=== PATIENT | female | born 1980 | race Caucasian/White ===

== ENCOUNTER 2024-06-22 06:31 | Day surgery (SDC) | payer OTHER, SELFPAY ==
[2024-06-11 11:17] VITALS: BMI 29.5
[2024-06-11 11:38] LABS: Hematocrit 42.8 % (37.0-47.0); Hemoglobin 14.1 g/dL (12.0-16.0); Mean Corp Hgb Conc. 32.9 g/dL (33.0-37.0); Mean Corpuscular Hgb 30.1 pg (27.0-31.0); Mean Corpuscular Volume 91.5 fL (81.0-99.0); Platelet Count 292 10^3/uL (130-400); Red Blood Cell Count 4.68 10^6/uL (4.20-5.40); Red Cell Dist. Width 12.8 % (11.5-14.5); White Blood Cell Count 8.5 10^3/uL (4.8-10.8)
[2024-06-11 12:38] LABS: Blood Urea Nitrogen 10 mg/dl (7-17); Calcium 9.6 mg/dl (8.4-10.2); Carbon Dioxide 30 mmol/L (22-30); Chloride 100 mmol/L (98-107); Estimated Creatinine Clearance 95 ml/min; Glucose 90 mg/dl (70-99); Potassium 4.4 mmol/L (3.5-5.1); Sodium 139 mmol/L (135-145); eGFR > 60.00
[2024-06-22 11:44] VITALS: BMI 29.5
[2024-06-22 11:48] VITALS: BP 127/89
[2024-06-22] MEDS: Pyridium 200 MG PO (11:57)
[2024-06-22 16:00] VITALS: BP 127/89; BP 128/87
[2024-06-22 16:15] VITALS: BP 129/83
[2024-06-22 16:49] VITALS: BP 120/90
--- NOTE | 2024-06-22 17:12 | SUR.PHASEI ---
at 1640 - 300 cc ns instill into wing - using sterile technique, patient tolerated well. balloon deflated and wing discontinued. patient discharged to [facility] , no pain - slight abdominal soreness.
[2024-06-22 17:20] VITALS: BP 124/85
[2024-06-22 17:46] VITALS: BP 131/69
== END 2024-06-22 18:19 | disposition home or self-care (01) ==
LOC: SDS 06:31
PROVIDERS: ATTENDING PHYSICIAN Obstetrics & Gynecology; FAMILY PHYSICIAN Family Medicine
DX: Z30.2 Encounter for sterilization (principal); N39.3 Stress incontinence (female) (male); N70.91 Salpingitis, unspecified
CPT/HCPCS: 58661; 57288; 88302; 36415; 80048; 85027; 93005; C1776

== ENCOUNTER → 2024-09-18 12:14 | Outpatient (REF) | payer OTHER, SELFPAY | LOC: HWRAD 12:14 | PROVIDERS: ATTENDING PHYSICIAN Obstetrics & Gynecology; FAMILY PHYSICIAN Physician Assistant Medical | DX: N20.0 Calculus of kidney (principal) | CPT/HCPCS: 76770 ==

== ENCOUNTER → 2025-03-10 15:25 | Outpatient (REF) | payer OTHER, SELFPAY | LOC: HWRAD 15:25 | PROVIDERS: ATTENDING PHYSICIAN Physician Assistant Medical | DX: R05.8 Other specified cough (principal); R04.2 Hemoptysis | CPT/HCPCS: 71046 ==

== ENCOUNTER 2025-05-17 11:03 | Emergency (ER) | payer OTHER, SELFPAY ==
--- NOTE | 2025-05-17 11:55 | ED.GENMED ---
History of Present Illness
General
Chief Complaint: Generalized Pain
Source: patient
Exam Limitations: none
Time Seen by Provider: 05/17/25 11:34
Nursing documentation reviewed up to this point in time: agreed with
History of Present Illness
History of Present Illness:
45-year-old female presenting to the emergency department with concerns of generalized fluctuating muscle contractions mainly to the left side including her face left arm left back left neck left chest and left leg. She has seen multiple doctors
and pain management doctors for this. Currently she is on fluoxetine gabapentin and tizanidine for symptoms.
Past History
Past History
ED Past Medical History: Psychiatric (Depression) and Other (recurring Lymes)
ED Past Surgical History: and Other (Breast implants, wisdom teeth)
Social History
Tobacco: Non-smoker
Alcohol: None
Drug: None
Personal:
Living: with family
Employment: Employed
Review of Systems
Review of Systems
Allergies reviewed?: Yes
All Other Systems: ROS reviewed and negative except as documented in HPI and ROS
Phy Exam
Physical Exam
Physical Exam:
GENERAL: Alert , in no apparent distress
EYE: pupils equal and reactive
NECK: Supple, no significant adenopathy.
ENT: o/p clr, mmm.
CARDIAC: Regular rate and rhythm .
LUNGS: Clear breath sounds bilaterally, no acute respiratory distress, no wheezes/rales/rhonchi
ABDOMEN: Soft, without focal tenderness, no r/g, no cvat
NEUROLOGICAL: Alert and oriented, no focal neuro deficits 5 out of 5 upper and lower extremity strength normal sensation with palpating bilaterally. Walking with steady gait.
SKIN: Warm and dry, skin intact.
MUSCULOSKELETAL: No edema, well perfused. No visible abnormalities
PSYCH: Normal and appropriate interaction.
Course
Orders/Labs/Results
Orders:
Orders
05/17/25 11:55
Test Result ONCE
05/17/25 11:57
Beta Hcg Serum Qualitative Screen [HCG, Serum Qualitative Screen] Urgent
CBC/With Diff [Complete Blood Count/With Diff] Urgent
CMP [Comprehensive Metabolic Panel] Urgent
Lyme Progressive Urgent
TSH Reflex To Free T4 Urgent
05/17/25 13:41
Dexamethasone [Decadron] 10 mg PO NOW STA
Abnormal Lab Results
05/17/25
11:57
RBC 4.10 L 10^6/uL
(4.20-5.40)
Hct 36.3 L %
(37.0-47.0)
05/17/25 11:57
05/17/25 11:57
Vital Signs
Initial and Last Documented VS:
Initial Vital Signs
Temp Pulse Resp Pulse Ox
97.8 F 85 18 98
05/17/25 11:07 05/17/25 11:07 05/17/25 11:07 05/17/25 11:07
Last Documented Vital Signs
Temp Pulse Resp Pulse Ox
97.8 F 85 18 98
05/17/25 11:07 05/17/25 11:07 05/17/25 11:07 05/17/25 11:56
MDM/Problems Addressed
MDM/Problems Addressed:
45-year-old female presenting to the emergency department today with concerns of fluctuating muscle contractions and discomfort. Does follow-up with a pain management doctor. Here labs without acute abnormalities. Patient no distress no signs of
emergent pathology advised for close outpatient follow-up. Return precautions given.
*Pulse Oximetry
SaO2: 98
Oxygen Mode of Delivery: Room air
Patient hypoxic: no (98)
*Critical Care Note
Total Time (30-74mins, 75-104mins- exclusive of procedures): Not Applicable
ED Attending Note
-
Portions of this chart may have been created with voice recognition software.� Occasional wrong word or��sound alike� substitutions may have occurred due to the inherent limitations of voice recognition software.
Discharge Plan
Departure
Patient Disposition: Home (Routine Discharge)
Date of Disposition: 05/17/25
Time of Disposition: 13:42
Patient with high blood pressure during this ER visit?: No
Condition: Good
Covid-19: Not Applicable
Discharge Problem:
Muscle spasm
Instructions: Chronic Pain (DC)
Prescriptions:
New
diazepam [Valium] 5 mg tablet
5 mg PO BID PRN (Reason: muscle spasm) Qty: 7 0RF
prednisone 20 mg tablet
40 mg PO DAILY 4 Days Qty: 8 0RF
No Action
fluoxetine 40 mg capsule
40 mg PO DAILY
cyclobenzaprine 5 mg Tablet
5 mg PO Q8HPRN PRN (Reason: Back Pain)
Bi-Est
1 applic topical DAILY
Medical Marijuana
1 dose inhalation PRN PRN (Reason: pain)
Referrals:
Atiya Saucedo MD [Family Provider, Family Practice]
Activity Restrictions/Additional Instructions:
You came to the emergency department today with concerns of intermittent muscle contractions. This could be related to your neck pathology and back pathology. Please take the prescribed medications and follow-up closely with your outpatient team.
Return for any worsening, new or concerning symptoms.
Interventions
Interventions:
*Risk Screen - Suicide Last Done: 05/17/25 11:07
*General Assessment Last Done: 05/17/25 11:07
*Neglect/Abuse Screening Last Done: 05/17/25 12:17
*ED- Fall Risk Assessment Last Done: 05/17/25 12:17
*ED COVID-19 Vaccine History Last Done: 05/17/25 12:17
*ED Influenza Vaccine History Last Done: 05/17/25 12:17
Discharge Date and Time
Print Language: ALBANIAN
[2025-05-17 12:09] LABS: Hematocrit 36.3 % (37.0-47.0); Hemoglobin 12.0 g/dL (12.0-16.0); Mean Corp Hgb Conc. 33.1 g/dL (33.0-37.0); Mean Corpuscular Volume 88.5 fL (81.0-99.0); Nucleated Red Blood Cells % 0 %; Platelet Count 308 10^3/uL (130-400); Red Cell Dist. Width 12.7 % (11.5-14.5)
[2025-05-17 12:31] LABS: HCG, Serum Qualitative Screen Negative
[2025-05-17 12:35] LABS: ALT (SGPT) 21 U/L (0-35); AST (SGOT) 26 U/L (14-36); Albumin 4.8 g/dl (3.5-5.0); Alkaline Phosphatase 53 U/L (38-126); Blood Urea Nitrogen 12 mg/dl (7-17); Calcium 9.7 mg/dl (8.4-10.2); Carbon Dioxide 27 mmol/L (22-30); Chloride 104 mmol/L (98-107); Glucose 87 mg/dl (70-99); Potassium 4.3 mmol/L (3.5-5.1); Sodium 135 mmol/L (135-145); Total Protein 7.4 g/dl (6.3-8.2); eGFR > 60.00
[2025-05-17 13:47] VITALS: BP 112/71
[2025-05-17] MEDS: DECADRON 10 MG PO (13:55)
== END 2025-05-17 14:03 | disposition home or self-care (01) ==
LOC: EMR 11:03
PROVIDERS: Physician Assistant; EMERGENCY PHYSICIAN Emergency Medicine; FAMILY PHYSICIAN Student in an Organized Health Care Education/Training Program
DX: M62.838 Other muscle spasm (principal); Z98.82 Breast implant status
CPT/HCPCS: 99283; 80053; 84443; 84703; 85025; 86618

== ENCOUNTER 2025-06-14 10:45 | Emergency (ER) | payer OTHER, SELFPAY ==
[2025-06-14 10:48] VITALS: BP 144/91
[2025-06-14 10:50] VITALS: BP 144/91
[2025-06-14 10:55] VITALS: BMI 28.1
[2025-06-14 11:00] VITALS: BP 148/99
--- NOTE | 2025-06-14 11:20 | ED.GENMED ---
History of Present Illness
<Pia Najera MD, Resident - Last Filed: 06/14/25 15:49>
General
Chief Complaint: Numbness
Source: patient
Exam Limitations: none
Time Seen by Provider: 06/14/25 11:12
History of Present Illness
History of Present Illness:
Patient is a 45-year-old female, with past medical history significant for anxiety/depression, recurring Lyme disease, breast implants removal with delayed healing on the left side.. Since then she had recurrent emergency department visits with
concerns for numbness of left side of body including left face, neck, chest, hip and legs. She started seeing the pain management, who did a cervical and thoracic MRI that resulted to show bulging of the cervical vertebra and she was referred to
the neurologist. She has been taking baclofen, gabapentin and meloxicam for pain which has been helping and she has an upcoming neurologist appointment on , June 17, 2025.
Today she was sitting in her house, when she had a sudden feeling of cold developing on the left side followed by muscular contractions and difficulty in breathing as well as chewing. She felt very stiff and got scared and that is why she came to
the ER.
She reported severe pain in upper back, that has been affecting her breathing
Denies any fever, chills, diarrhea, constipation, muscle weakness or any vision changes.
Past History
<Pia Najera MD, Resident - Last Filed: 06/14/25 15:49>
Past History
ED Past Medical History: Psychiatric (Depression) and Other (recurring Lymes)
ED Past Surgical History: and Other (Breast implants, wisdom teeth)
Social History
Tobacco: Non-smoker
Alcohol: None
Drug: None
Personal:
Living: with family
Employment: Employed
Review of Systems
<Pia Najera MD, Resident - Last Filed: 06/14/25 15:49>
Review of Systems
All Other Systems: ROS reviewed and negative except as documented in HPI and ROS
Phy Exam
<Pia Najera MD, Resident - Last Filed: 06/14/25 15:49>
General Physical Exam
General Presentation: no apparent distress
Eye Exam
Eye Exam: PERRL, conjunctiva normal and visual saxena normal
Cardiovascular Exam
Cardiovascular Exam: regular rate/rhythm and no murmur
Pulmonary Exam
Pulmonary Exam: lungs clear, no respiratory distress, no crackles and no wheezing
Gastrointestinal Exam
Gastrointestinal Exam: normal bowel sounds, non tender, soft and non distended
Neurological Exam
Neurological Exam: alert, oriented x3, CN II-XII intact, no motor deficits, no sensory deficits, speech normal and cerebellum intact
Musculoskeletal Exam
Musculoskeletal Exam: full ROM and neck pain
Skin Exam
Skin Exam: normal color, warm/dry and no rash
Psychiatric Exam
Psychiatric Exam: anxious
Course
<Pia Najera MD, Resident - Last Filed: 06/14/25 15:49>
Orders/Labs/Results
Orders:
Orders
06/14/25 11:08
EKG [Electrocardiogram (*1)] Urgent
Reason for Study: Chest Pain
EKG- Treatment ONCE
06/14/25 11:15
Beta HCG Quantitative Urgent
Comment: ADD ON
CMP [Comprehensive Metabolic Panel] Urgent
Complete Blood Count/With Diff Urgent
Troponin I Urgent
06/14/25 11:18
D-Dimer Stat
06/14/25 12:20
Chest [CR Chest - 2 Views ] Stat
Comment:
Reason For Exam: rib pain
06/14/25 13:52
CT Chest PE Study Stat
Comment:
Reason For Exam: Suspected PE
06/14/25 14:08
Test Result ONCE
06/14/25 14:27
Add On- LAB Urgent
Tests Added?: serum hcg quant
06/14/25 15:24
Add On- LAB Stat
Tests Added?: qualitative HCG
06/14/25 16:21
Baclofen [Lioresal] 10 mg PO NOW STA
Gabapentin [Neurontin] 300 mg PO NOW STA
06/14/25 16:22
CT Abd/pelvis Angio W/wo Iv Urgent
Comment:
Reason For Exam: active maroon stools
IV Insert/Care/Rem.- Treatment PRN
Abnormal Lab Results
06/14/25 06/14/25
11:15 11:18
RBC 4.08 L 10^6/uL
(4.20-5.40)
Hgb 11.8 L g/dL
(12.0-16.0)
Hct 36.0 L %
(37.0-47.0)
MCHC 32.8 L g/dL
(33.0-37.0)
Absolute Neuts (auto) 7.0 H 10^3/uL
(1.4-6.5)
D-Dimer 0.81 H ug/mlFEU
(0.00-0.50)
BUN 4 L mg/dl
(7-17)
ALT 62 H U/L
(0-35)
06/14/25 11:15
06/14/25 11:15
Vital Signs
Initial and Last Documented VS:
Initial Vital Signs
Temp Pulse Resp BP Pulse Ox
98.3 F 70 18 144/91 100
06/14/25 10:48 06/14/25 10:48 06/14/25 10:48 06/14/25 10:48 06/14/25 10:48
Last Documented Vital Signs
Temp Pulse Resp BP Pulse Ox
97.7 F 75 23 148/99 100
06/14/25 14:00 06/14/25 14:15 06/14/25 14:15 06/14/25 11:00 06/14/25 12:00
<Tania Marin MD - Last Filed: 06/14/25 18:58>
Orders/Labs/Results
Orders:
Orders
06/14/25 11:08
EKG [Electrocardiogram (*1)] Urgent
Reason for Study: Chest Pain
EKG- Treatment ONCE
06/14/25 11:15
Beta HCG Quantitative Urgent
Comment: ADD ON
CMP [Comprehensive Metabolic Panel] Urgent
Complete Blood Count/With Diff Urgent
Troponin I Urgent
06/14/25 11:18
D-Dimer Stat
06/14/25 12:20
Chest [CR Chest - 2 Views ] Stat
Comment:
Reason For Exam: rib pain
06/14/25 13:52
CT Chest PE Study Stat
Comment:
Reason For Exam: Suspected PE
06/14/25 14:08
Test Result ONCE
06/14/25 14:27
Add On- LAB Urgent
Tests Added?: serum hcg quant
06/14/25 15:24
Add On- LAB Stat
Tests Added?: qualitative HCG
06/14/25 16:21
Baclofen [Lioresal] 10 mg PO NOW STA
Gabapentin [Neurontin] 300 mg PO NOW STA
06/14/25 16:22
CT Abd/pelvis Angio W/wo Iv Urgent
Comment:
Reason For Exam: active maroon stools
IV Insert/Care/Rem.- Treatment PRN
Abnormal Lab Results
06/14/25 06/14/25
11:15 11:18
RBC 4.08 L 10^6/uL
(4.20-5.40)
Hgb 11.8 L g/dL
(12.0-16.0)
Hct 36.0 L %
(37.0-47.0)
MCHC 32.8 L g/dL
(33.0-37.0)
Absolute Neuts (auto) 7.0 H 10^3/uL
(1.4-6.5)
D-Dimer 0.81 H ug/mlFEU
(0.00-0.50)
BUN 4 L mg/dl
(7-17)
ALT 62 H U/L
(0-35)
06/14/25 11:15
06/14/25 11:15
Vital Signs
Initial and Last Documented VS:
Initial Vital Signs
Temp Pulse Resp BP Pulse Ox
98.3 F 70 18 144/91 100
06/14/25 10:48 06/14/25 10:48 06/14/25 10:48 06/14/25 10:48 06/14/25 10:48
Last Documented Vital Signs
Temp Pulse Resp BP Pulse Ox
97.7 F 75 23 148/99 100
06/14/25 14:00 06/14/25 14:15 06/14/25 14:15 06/14/25 11:00 06/14/25 12:00
<Pia Najera MD, Resident - Last Filed: 06/14/25 15:49>
MDM/Problems Addressed
Differential Diagnosis Includes:
Multiple sclerosis
Nerve compression
Pleurisy sec to PE
Electrolyte derangements
MDM/Problems Addressed:
Given her, nature of symptoms, multiple sclerosis sounds like a possible diagnosis, MRI recommended but patient has an upcoming appointment with neurology on in 2 days. Patient is stable and it would be more appropriate if neurology orders
and evaluates the MRI
She also complains of rib pain that has been making her feel worse, has pain with breathing, check D-dimers if negative reassured the patient and if positive will recommend a CT chest
Blood work reassuring
<Pia Najera MD, Resident - Last Filed: 06/14/25 15:49>
*Pulse Oximetry
SaO2: 100
Oxygen Mode of Delivery: Room air
Patient hypoxic: no
*Critical Care Note
Total Time (30-74mins, 75-104mins- exclusive of procedures): Not Applicable
<Tania Marin MD - Last Filed: 06/14/25 18:58>
*Radiology
Radiology exam reviewed: radiology read reviewed
Data Reviewed
Source: patient
<Tania Marin MD - Last Filed: 06/14/25 18:58>
Patient Management
Escalation/DeEscalation of care consider admission/obs:
6:50 PM patient appears well and comfortable.
Patient CT does show gallstones, however, patient denies any right upper quadrant pain and has no right upper quadrant tenderness on exam.
Additionally, CT also shows inflammation of bladder, however, patient adamantly denies burning when she urinates or suprapubic pressure. Therefore, clinically there is no sign of UTI.
I discussed these findings with the patient so she is aware that there is nonspecific inflammation of the bladder as well as signs of gallstones. Patient sent home with a copy of her CT chest as well as abdomen pelvis to review with her primary
care doctor
Patient tells me that she is worried she might be having seizures, however, patient has had no seizure activity in the ED.
Patient encouraged to follow-up with neurology as scheduled this .
ED Attending Note
<Pia Najera MD, Resident - Last Filed: 06/14/25 15:49>
-
Portions of this chart may have been created with voice recognition software.� Occasional wrong word or��sound alike� substitutions may have occurred due to the inherent limitations of voice recognition software.
Discharge Plan
Departure
Patient Disposition: Home (Routine Discharge)
Date of Disposition: 06/14/25
Time of Disposition: 18:49
Patient with high blood pressure during this ER visit?: No
Discharge Problem:
numbness of left side
Instructions: Peripheral Neuropathy (DC)
Prescriptions:
No Action
fluoxetine 40 mg capsule
40 mg PO DAILY
cyclobenzaprine 5 mg Tablet
5 mg PO Q8HPRN PRN (Reason: Back Pain)
Bi-Est
1 applic topical DAILY
Medical Marijuana
1 dose inhalation PRN PRN (Reason: pain)
diazepam [Valium] 5 mg tablet
5 mg PO BID PRN (Reason: muscle spasm) Qty: 7 0RF
prednisone 20 mg tablet
40 mg PO DAILY 4 Days Qty: 8 0RF
Referrals:
UNKNOWN - PT NOT,INTERVIEWE [Family Provider]
Activity Restrictions/Additional Instructions:
Follow-up with neurology-as scheduled
Follow-up with your primary care doctor within 1 week to review the CAT scan results with your doctor
Interventions
Interventions:
*Risk Screen - Suicide Last Done: 06/14/25 10:48
*General Assessment Last Done: 06/14/25 10:55
*Neglect/Abuse Screening Last Done: 06/14/25 10:48
*ED- Fall Risk Assessment Last Done: 06/14/25 10:55
*ED COVID-19 Vaccine History Last Done: 06/14/25 10:48
*ED Influenza Vaccine History Last Done: 06/14/25 10:48
ED- Neurological Assessment Last Done: 06/14/25 10:55
Discharge Date and Time
Print Language: FRENCH
[2025-06-14 11:32] LABS: Hematocrit 36.0 % (37.0-47.0); Hemoglobin 11.8 g/dL (12.0-16.0); Mean Corp Hgb Conc. 32.8 g/dL (33.0-37.0); Mean Corpuscular Volume 88.2 fL (81.0-99.0); Nucleated Red Blood Cells % 0 %; Platelet Count 355 10^3/uL (130-400); Red Cell Dist. Width 12.5 % (11.5-14.5)
[2025-06-14 11:43] LABS: ALT (SGPT) 62 U/L (0-35); AST (SGOT) 33 U/L (14-36); Albumin 4.6 g/dl (3.5-5.0); Alkaline Phosphatase 74 U/L (38-126); Blood Urea Nitrogen 4 mg/dl (7-17); Calcium 9.4 mg/dl (8.4-10.2); Carbon Dioxide 26 mmol/L (22-30); Chloride 104 mmol/L (98-107); Glucose 96 mg/dl (70-99); Potassium 3.9 mmol/L (3.5-5.1); Sodium 137 mmol/L (135-145); Total Protein 7.0 g/dl (6.3-8.2); eGFR > 60.00
[2025-06-14 11:54] LABS: Troponin I < 0.012 ng/ml
[2025-06-14 13:40] LABS: D-Dimer 0.81 ug/mlFEU (0.00-0.50)
[2025-06-14 14:23] VITALS: BP 134/99
[2025-06-14 16:18] LABS: Beta HCG Quantitative < 2.39 mIU/ml
[2025-06-14] MEDS: LIORESAL 10 MG PO (17:17)
[2025-06-14] MEDS: NEURONTIN 300 MG PO (17:17)
[2025-06-14 17:18] VITALS: BP 147/93
[2025-06-14 18:00] VITALS: BP 151/89
== END 2025-06-14 19:41 | disposition home or self-care (01) ==
LOC: EMR 10:45
PROVIDERS: EMERGENCY PHYSICIAN Emergency Medicine
DX: R20.0 Anesthesia of skin (principal); N30.90 Cystitis, unspecified without hematuria; K80.20 Calculus of gallbladder without cholecystitis without obstruction; M54.6 Pain in thoracic spine
CPT/HCPCS: 99284; 71046; 71275; 74174; 80053; 84484; 84702; 85025; 85379; 93005; Q9967